=== PATIENT | female | born 1995 | race Caucasian/White ===

== ENCOUNTER 2017-06-10 19:44 | Emergency (ER) | payer MEDICAID ==
--- NOTE | 2017-06-10 20:00 | Emergency Department Record ---
History of Present Illness - General Chief complaint: Nausea, Vomiting, Diarrhea Stated complaint: FEVER,COUGH,VOMITTING,NAUSEA Time Seen by Provider: 06/10/17 19:59 Source: Patient Mode of Arrival: Ambulatory Limitations: No limitations - History of Present Illness Initial comments: 22 yo female presents to ED for evaluation of low-grade fever symptoms, nausea, and vomiting. Patient reports recent illness with similar symptoms with her 5 mo son, his symptoms are now improved. Patient denies abdominal pain or urinary symptoms, denies health problems at her baseline. Patient declined Zofran for her symptoms. MD complaint: Nausea, Vomiting Onset/Timin -: Days(s) Description of Vomiting: Food contents Associated Abdominal Pain: No Quality: Aching Consistency: Constant Improves with: None Worsens with: None Context: Sick contacts Associated Symptoms: Nausea/vomiting - Related Data Home Medications Medication Instructions Recorded Confirmed Last Taken No Home Med [NO HOME MEDS] 06/10/17 06/10/17 Unknown Allergies Allergy/AdvReac Type Severity Reaction Status Date / Time No Known Drug Allergies Allergy Verified 06/10/17 19:51 Travel Screening - Travel/Exposure Within Last 30 Days Have you traveled within the last 30 days?: No Review of Systems Constitutional: Denies: Chills, Fever, Malaise, Night sweats Eyes: Denies: Eye discharge, Eye pain ENT: Denies: Congestion, Ear pain, Epistaxis Respiratory: Denies: Cough, Dyspnea Cardiovascular: Denies: Chest pain, Dyspnea on exertion Endocrine: Denies: Fatigue, Heat or cold intolerance Gastrointestinal: Reports: Nausea, Vomiting. Denies: Abdominal pain Genitourinary: Denies: Incontinence, Retention Musculoskeletal: Denies: Arthralgia, Back pain, Gout, Joint swelling Skin: Denies: Bruising, Change in color Neurological: Denies: Abnormal gait, Confusion, Headache, Seizure Psychiatric: Denies: Anxiety Hematological/Lymphatic: Denies: Anemia, Blood Clots Past Medical History - SOCIAL HISTORY Smoking Status: Never smoker Alcohol Use: None Drug Use: None - RESPIRATORY Hx Respiratory Disorders: No - CARDIOVASCULAR Hx Cardio Disorders: No - NEURO Hx Neuro Disorders: No - GI Hx GI Disorders: No - Hx Genitourinary Disorders: No - ENDOCRINE Hx Endocrine Disorders: No - MUSCULOSKELETAL Hx Musculoskeletal Disorders: No - PSYCH Hx Psych Problems: No - HEMATOLOGY/ONCOLOGY Hx Hematology/Oncology Disorders: No Family Medical History Any Significant Family History?: No Physical Exam - General General Appearance: Alert, Oriented x3, Cooperative, No acute distress Limitations: No limitations - Head Head exam: Atraumatic, Normocephalic, Normal inspection Head exam detail: negative: Abrasion, Contusion, Saenz's sign, General tenderness, Hematoma, Laceration - Eye Eye exam: Normal appearance. negative: Conjunctival injection, Periorbital swelling, Periorbital tenderness, Scleral icterus - ENT Ear exam: negative: Auricular hematoma, Auricular trauma Nasal Exam: negative: Active bleeding, Discharge, Dried blood, Foreign body Mouth exam: negative: Drooling, Laceration, Muffled voice, Tongue elevation - Neck Neck exam: Normal inspection. negative: Meningismus, Tenderness - Respiratory Respiratory exam: Normal lung sounds bilaterally. negative: Rales, Respiratory distress, Rhonchi, Stridor - Cardiovascular Cardiovascular Exam: Regular rate, Normal rhythm, Normal heart sounds - GI/Abdominal GI/Abdominal exam: Soft. negative: Rebound, Rigid, Tenderness - Rectal Rectal exam: Deferred - exam: Deferred - Extremities Extremities exam: Normal inspection. negative: Calf tenderness, Pedal edema, Tenderness - Back Back exam: Denies: CVA tenderness (R), CVA tenderness (L) - Neurological Neurological exam: Alert, Normal gait, Oriented X3 - Psychiatric Psychiatric exam: Normal affect, Normal mood - Skin Skin exam: Normal color. negative: Abrasion Type of lesion: negative: abrasion Course Vital Signs 06/10/17 19:48 Temperature 99.1 F Pulse Rate 98 H Respiratory 20 Rate Blood Pressure 125/69 Pulse Ox 96 - Reevaluation(s) Reevaluation #1: 06/10/17 20:05 Patient is well appearing on examination, no abdominal pain symptoms, and the patient is declining Zofran at this time. Patient reports that she needs a work not for today, appears stable for discharge at this time. Disposition Disposition: Discharge Clinical Impression: Viral syndrome Disposition: Home, Self-Care Condition: (2) Stable Instructions: Acute Nausea and Vomiting (ED) Additional Instructions: Return to ED if your symptoms worsen or if you have any concerns. Tylenol/Motrin as needed for fever symptoms. Follow-up with your family doctor in 3-5 days as directed. Forms: Patient Portal Access Time of Disposition: 20:00 Quality - Quality Measures Quality Measures: N/A - Blood Pressure Screening Does Patient Have Any of the Following: No Blood Pressure Classification: Pre-Hypertensive BP Reading Systolic Measurement: 125 Diastolic Measurement: 69 Screening for High Blood Pressure: < Pre-Hypertensive BP, F/U Documented > [ [id number]] Pre-Hypertensive Follow-up Interventions: Referral to alternative/primary care provider.
== END 2017-06-10 20:20 | disposition home or self-care (01) ==
LOC: ER 19:44
DX: B34.9 Viral infection, unspecified (principal); R11.2 Nausea with vomiting, unspecified; R19.7 Diarrhea, unspecified
CPT/HCPCS: 99282